=== PATIENT | male | born 1945 | race Caucasian/White ===

== ENCOUNTER 2016-11-14 07:05 | Outpatient (CLI) | payer MEDICARE ==
[2016-11-14 11:25] LABS: EOSINOPHILS # (AUTO) 0.2 10^3/uL (0.0-0.7); HGB - HEMOGLOBIN 14.7 g/dL (14.0-18.0); LYMPHOCYTES # (AUTO) 1.2 10^3/uL (1.5-3.5); MEAN PLATELET VOLUME 8.8 fL (7.4-11.4); RED CELL DISTRIBUTION WIDTH 12.6 % (12.0-15.0)
[2016-11-14 11:27] LABS: BASOPHILS % (AUTO) 0.6 %; EOSINOPHILS % (AUTO) 3.5 %; HCT - HEMATOCRIT 42.6 % (42.0-52.0); LYMPHOCYTES % (AUTO) 24.1 %; MEAN CORPUSCULAR HEMOGLOBIN 34.9 pg (27.0-31.0); MEAN CORPUSCULAR HGB CONC 34.5 g/dL (32.0-36.0); MEAN CORPUSCULAR VOLUME 101.1 fL (80.0-94.0); MONOCYTES # (AUTO) 0.4 10^3/uL (0.0-1.0); MONOCYTES % (AUTO) 8.2 %; NEUTROPHILS # (AUTO) 3.3 10^3/uL (1.5-6.6); NEUTROPHILS % (AUTO) 63.6 %; RED BLOOD COUNT 4.22 10^6/uL (4.70-6.10); UNCORRECTED WHITE BLOOD COUNT 5.2 x10^3/uL; WHITE BLOOD COUNT 5.2 x10^3/uL (4.8-10.8)
[2016-11-14 12:02] LABS: ALBUMIN/GLOBULIN RATIO 1.5 (1.0-2.2); CALCIUM 9.1 mg/dL (8.5-10.3); CREATININE 0.8 mg/dL (0.6-1.2); POTASSIUM 3.9 mmol/L (3.5-5.0); TOTAL PROTEIN 6.7 g/dL (6.7-8.2)
[2016-11-14 12:16] LABS: FREE T3 2.96 pg/mL (2.5-3.9)
[2016-11-14 12:35] LABS: THYROID STIMULATING HORMONE 0.46 uIU/mL (0.34-5.60)
== END 2016-11-14 07:06 | disposition home or self-care (01) ==
LOC: LAB.F 07:05
PROVIDERS: ATTEND Internal Medicine
DX: I10 Essential (primary) hypertension (principal); E29.1 Testicular hypofunction; R68.82 Decreased libido; E03.9 Hypothyroidism, unspecified
CPT/HCPCS: 36415; 80053; 82306; 84403; 84439; 84443; 84481; 85025; G0103; 84153

== ENCOUNTER 2017-12-23 09:05 | Outpatient (CLI) | payer MEDICARE ==
[2017-12-23 17:55] LABS: BASOPHILS # (AUTO) 0.1 10^3/uL (0.0-0.1); BASOPHILS % (AUTO) 0.9 %; EOSINOPHILS # (AUTO) 0.1 10^3/uL (0.0-0.7); EOSINOPHILS % (AUTO) 2.3 %; HGB - HEMOGLOBIN 14.9 g/dL (14.0-18.0); LYMPHOCYTES # (AUTO) 1.4 10^3/uL (1.5-3.5); MEAN CORPUSCULAR HEMOGLOBIN 34.8 pg (27.0-31.0); MEAN CORPUSCULAR HGB CONC 33.5 g/dL (32.0-36.0); MEAN CORPUSCULAR VOLUME 103.8 fL (80.0-94.0); MEAN PLATELET VOLUME 8.4 fL (7.4-11.4); MONOCYTES # (AUTO) 0.5 10^3/uL (0.0-1.0); MONOCYTES % (AUTO) 8.6 %; NEUTROPHILS # (AUTO) 4.1 10^3/uL (1.5-6.6); NEUTROPHILS % (AUTO) 66.2 %; PLT - PLATELET COUNT 183 10^3/uL (130-450); RED BLOOD COUNT 4.28 10^6/uL (4.70-6.10); RED CELL DISTRIBUTION WIDTH 13.1 % (12.0-15.0); WHITE BLOOD COUNT 6.3 x10^3/uL (4.8-10.8)
[2017-12-23 18:43] LABS: ALBUMIN/GLOBULIN RATIO 1.4 (1.0-2.2); ALKALINE PHOSPHATASE 67 IU/L (42-121); ALT ALANINE AMINOTRANSFERASE 24 IU/L (10-60); AST ASPARTATE AMINOTRANSFERASE 24 IU/L (10-42); BILIRUBIN,TOTAL 1.7 mg/dL (0.2-1.0); BUN - BLOOD UREA NITROGEN 14 mg/dL (6-20); CALCIUM 8.6 mg/dL (8.5-10.3); CARBON DIOXIDE - CO2 24 mmol/L (21-32); CHLORIDE 104 mmol/L (101-111); CHOL/HDL RATIO 2.8 (<5.0); CHOLESTEROL 182 mg/dL; CREATININE 0.8 mg/dL (0.6-1.2); GFR - MDRD 95 (>89); GLUCOSE 75 mg/dL (70-100); HDL CHOLESTEROL 66 mg/dL; LDL CHOLESTEROL,CALCULATED 92 mg/dL; LDL/HDL RATIO 1.4 (<3.6); SODIUM 135 mmol/L (135-145); TOTAL PROTEIN 6.9 g/dL (6.7-8.2); VLDL CHOLESTEROL 24 mg/dL
[2017-12-24 15:15] LABS: HEPATITIS C ANTIBODY NON-REACTIVE (NON-REACTIVE)
== END 2017-12-23 09:06 | disposition home or self-care (01) ==
LOC: LAB.F 09:05
PROVIDERS: ATTEND Physician Assistant Medical
DX: I10 Essential (primary) hypertension (principal); E78.5 Hyperlipidemia, unspecified; E03.9 Hypothyroidism, unspecified; E29.1 Testicular hypofunction; R74.8 Abnormal levels of other serum enzymes; Z12.5 Encounter for screening for malignant neoplasm of prostate; Z11.59 Encounter for screening for other viral diseases
CPT/HCPCS: 36415; 80053; 80061; 81599; 84402; 84403; 84443; 85025; 86803; G0103; 83721; 84153

== ENCOUNTER 2018-01-13 08:40 | Outpatient (CLI) | payer MEDICARE ==
[2018-01-13 10:21] LABS: ALBUMIN/GLOBULIN RATIO 1.4 (1.0-2.2); BILIRUBIN,TOTAL 1.2 mg/dL (0.2-1.0); CALCIUM 8.8 mg/dL (8.5-10.3); CREATININE 0.8 mg/dL (0.6-1.2); TOTAL PROTEIN 6.9 g/dL (6.7-8.2)
--- NOTE | 2018-01-13 11:36 | Ultrasound Report ---
Procedure Date: 01/13/2018 Accession Number: [id number] / [id number] Procedure: US - Aorta Screening CPT Code: FULL RESULT: EXAM: AORTIC DOPPLER ULTRASOUND EXAM DATE: 01/13/2018 09:33 AM. CLINICAL HISTORY: Screening for other unsp cardiovascular. COMPARISON: None. TECHNIQUE: Real-time sonographic imaging of retroperitoneal vascular structures, including color-flow, Doppler flow and spectral analysis was performed by the product sales engineer. Multiple sales representative meats static images were saved for review. FINDINGS: Aorta: The abdominal aorta was adequately visualized. No evidence for abdominal aortic aneurysm. Aorta: Proximal: Sagittal AP: 2.9 cm. Mid: Transverse: 2.2 x 2.4 cm. Distal: Transverse: 1.9 x 2.1 cm. Caliber WNL: Yes. Plaque visualized: Yes. Iliacs: Right Iliac: Transverse: 1.6 x 1.9 cm. Left Iliac: Transverse: 1.7 x 1.8 cm. Iliac Vessels: The visualized proximal common iliac arteries are normal in caliber. Other: Measurements are compatible with ectasia of the common iliac arteries and ectasia of the upper abdominal aorta without meeting criteria for aneurysm formation. IMPRESSION: Ectatic common iliac arteries and upper abdominal aorta. No abdominal aortic aneurysm. RADIA
--- NOTE | 2018-01-13 13:10 | DEXA Report ---
Procedure Date: 01/13/2018 Accession Number: [id number] / [id number] Procedure: DEX - Dexa Spine and/or Hip CPT Code: FULL RESULT: EXAM: Dexa Spine and/or Hip DATE: 01/13/2018 9:05 AM CLINICAL HISTORY: ENCOUNTER FOR SCREENING FOR OSTEOPOROSIS TECHNIQUE: Dual energy x-ray absorptiometry (DXA) was performed on a [employer] System. Regions measured are the AP Spine, femoral neck, and if needed forearm. COMPARISON: None. In accordance with the International Society for Clinical Densitometry (ISCD) guidelines, data from previous exams may be reanalyzed using current recommendations and techniques. This is done to allow a more accurate basis for comparison with the current study. FINDINGS: The data for the lumbar spine is as follows: BMD (g/cm/cm) T-SCORE Z-SCORE REGION L1 1.157 0.0 0.1 L2 1.465 1.9 2.0 L3 1.635 3.3 3.4 L4 1.597 3.0 3.1 TOTAL 1.485 2.2 2.3 NOTE: All evaluable vertebrae are used for classification The data for the hip is as follows: BMD (g/cm/cm) T-SCORE Z-SCORE REGION Neck 0.983 -0.7 0.3 TOTAL 1.145 0.3 0.8 IMPRESSION: THE WHO CLASSIFICATION BASED ON THE INTERNATIONAL REFERENCE STANDARD IS NORMAL. THE FRACTURE RISK IS NOT INCREASED. RECOMMENDATION: Patients with diagnosis of osteoporosis or osteopenia should have regular bone mineral density assessment. For those eligible for Medicare, routine testing is allowed once every 2 years. Testing frequency can be increased for patients who have rapidly progressing disease or for those who are receiving medical therapy to restore bone mass. COMMENT: World Health Organization (WHO) definitions for osteoporosis and osteopenia: NORMAL BMD: T-score at -1.0 or higher, fracture risk is low OSTEOPENIA BMD: T-score between -1.0 and -2.5, fracture risk is increased. OSTEOPOROSIS BMD: T-score at -2.5 or lower, fracture risk is high. National Osteoporosis Foundation recommends: 1. Obtain adequate dietary calcium (at least 1200 mg per day) and vitamin D (400-800 international units per day). 2. Participate, as appropriate, in regular weightbearing and muscle-strengthening exercise. 3. Avoid tobacco use and reduce alcohol and caffeine intake. 4. For more detailed information see the website at www.NOF.org.
[2018-01-14 12:22] LABS: HEPATITIS C ANTIBODY NON-REACTIVE (NON-REACTIVE)
== END 2018-01-13 08:41 | disposition home or self-care (01) ==
LOC: DI 08:40
PROVIDERS: ATTEND Physician Assistant Medical
DX: Z13.6 Encounter for screening for cardiovascular disorders (principal); Z13.820 Encounter for screening for osteoporosis; Z11.59 Encounter for screening for other viral diseases; I77.811 Abdominal aortic ectasia; E29.1 Testicular hypofunction; R74.8 Abnormal levels of other serum enzymes; R89.9 Unspecified abnormal finding in specimens from other organs, systems and tissues
CPT/HCPCS: 36415; 76706; 77080; 80053; 81599; 86803

== ENCOUNTER 2018-11-26 09:10 | Outpatient (CLI) | payer MEDICARE ==
[2018-11-26 17:52] LABS: BASOPHILS % (AUTO) 0.5 %; EOSINOPHILS # (AUTO) 0.1 10^3/uL (0.0-0.7); EOSINOPHILS % (AUTO) 2.2 %; HGB - HEMOGLOBIN 14.9 g/dL (14.0-18.0); LYMPHOCYTES # (AUTO) 1.3 10^3/uL (1.5-3.5); LYMPHOCYTES % (AUTO) 20.9 %; MEAN CORPUSCULAR HEMOGLOBIN 34.1 pg (27.0-31.0); MEAN CORPUSCULAR HGB CONC 32.3 g/dL (32.0-36.0); MEAN CORPUSCULAR VOLUME 105.5 fL (80.0-94.0); MEAN PLATELET VOLUME 10.3 fL (7.4-11.4); MONOCYTES # (AUTO) 0.5 10^3/uL (0.0-1.0); MONOCYTES % (AUTO) 7.3 %; NEUTROPHILS # (AUTO) 4.4 10^3/uL (1.5-6.6); NEUTROPHILS % (AUTO) 68.9 %; PLT - PLATELET COUNT 188 10^3/uL (130-450); RED BLOOD COUNT 4.37 10^6/uL (4.70-6.10); RED CELL DISTRIBUTION WIDTH 13.2 % (12.0-15.0); WHITE BLOOD COUNT 6.4 x10^3/uL (4.8-10.8)
[2018-11-26 18:16] LABS: PSA SCREEN (Z12.5) 1.52 ng/mL (0.000-2.000)
[2018-11-26 18:17] LABS: ALBUMIN 4.3 g/dL (3.2-5.5); ALBUMIN/GLOBULIN RATIO 1.4 (1.0-2.2); ALKALINE PHOSPHATASE 64 IU/L (42-121); ALT ALANINE AMINOTRANSFERASE 43 IU/L (10-60); AST ASPARTATE AMINOTRANSFERASE 37 IU/L (10-42); BILIRUBIN,TOTAL 1.2 mg/dL (0.2-1.0); BUN - BLOOD UREA NITROGEN 13 mg/dL (6-20); CALCIUM 9.1 mg/dL (8.5-10.3); CARBON DIOXIDE - CO2 25 mmol/L (21-32); CHLORIDE 104 mmol/L (101-111); CHOL/HDL RATIO 2.3 (<5.0); CHOLESTEROL 185 mg/dL; CREATININE 0.8 mg/dL (0.6-1.2); GFR - MDRD 95 (>89); GLUCOSE 97 mg/dL (70-100); HDL CHOLESTEROL 82 mg/dL; LDL CHOLESTEROL,CALCULATED 91 mg/dL; LDL/HDL RATIO 1.1 (<3.6); SODIUM 139 mmol/L (135-145); TOTAL PROTEIN 7.3 g/dL (6.7-8.2); VLDL CHOLESTEROL 12 mg/dL
[2018-11-26 18:18] LABS: T4 (THYROXINE) 7.4 ug/dL (6.09-12.23)
[2018-11-26 18:21] LABS: FREE T3 2.97 pg/mL (2.5-3.9); THYROID STIMULATING HORMONE 0.34 uIU/mL (0.34-5.60)
== END 2018-11-26 09:11 | disposition home or self-care (01) ==
LOC: LAB.F 09:10
PROVIDERS: ATTEND Physician Assistant Medical
DX: I10 Essential (primary) hypertension (principal); E78.5 Hyperlipidemia, unspecified; E55.9 Vitamin D deficiency, unspecified; E53.8 Deficiency of other specified B group vitamins; Z12.5 Encounter for screening for malignant neoplasm of prostate; E03.9 Hypothyroidism, unspecified
CPT/HCPCS: 36415; 80061; 82306; 82607; 84436; 84481; G0103; 80053; 83721; 84153; 84439; 84443; 85025

== ENCOUNTER 2018-12-15 06:07 | Day surgery (SDC) | payer MEDICARE ==
[2018-12-15] MEDS ORDERED: LACTATED RINGERS 1,000 ML IV ONE ×2 (06:40→10:00)
--- NOTE | 2018-12-15 07:06 | ANESTHESIA ---
Pre-Anesthesia VS, & Labs - Diagnosis hx colon polyps/r scrotal abcess - Procedure colonsocopy, I&D R scrotal abcess Vital Signs: Temp Pulse Resp BP Pulse Ox 36.8 C 48 L 15 128/82 H 96 12/15/18 06:23 12/15/18 06:23 12/15/18 06:23 12/15/18 06:23 12/15/18 06:23 Height 6 ft Weight (kg) 90 kg Home Medications and Allergies Home Medications: Ambulatory Orders Atorvastatin [Lipitor] 20 mg PO DAILY 12/12/18 Cholecalciferol (Vitamin D3) [Vitamin D3] 5,000 unit PO DAILY 12/12/18 Cyanocobalamin (Vitamin B-12) [Vitamin B-12] 1,000 mcg PO DAILY 12/12/18 Felodipine [Felodipine ER] 5 mg PO DAILY 12/12/18 Krill/Om-3/Dha/Epa/Phospho/Ast [[place]-3 Krill Oil 300 mg Sfgl] 3 cap PO DAILY 12/12/18 Levothyroxine Sodium [Synthroid] 150 mcg PO DAILY 12/12/18 Losartan Potassium [Cozaar] 100 mg PO DAILY 12/12/18 RX: Metoprolol Tartrate 50 mg PO DAILY 12/12/18 Sulfamethox/Trimeth 800/160 [Bactrim Ds 800/160] 1 each PO BID 12/12/18 Atorvastatin [Lipitor] 20 mg PO DAILY 12/12/18 Cholecalciferol (Vitamin D3) [Vitamin D3] 5,000 unit PO DAILY 12/12/18 Cyanocobalamin (Vitamin B-12) [Vitamin B-12] 1,000 mcg PO DAILY 12/12/18 Felodipine [Felodipine ER] 5 mg PO DAILY 12/12/18 Krill/Om-3/Dha/Epa/Phospho/Ast [[place]-3 Krill Oil 300 mg Sfgl] 3 cap PO DAILY 12/12/18 Levothyroxine Sodium [Synthroid] 150 mcg PO DAILY 12/12/18 Losartan Potassium [Cozaar] 100 mg PO DAILY 12/12/18 Metoprolol Tartrate 50 mg PO DAILY 12/12/18 Sulfamethox/Trimeth 800/160 [Bactrim Ds 800/160] 1 each PO BID 12/12/18 Allergies/Adverse Reactions: Allergies Allergy/AdvReac Type Severity Reaction Status Date / Time No Known Drug Allergies Allergy Verified 12/12/18 14:25 Anes History & Medical History - Medical History Cardiovascular: reports: Hypertension, High cholesterol Pulmonary: reports: None Gastrointestinal: reports: Other Urinary: reports: None Musculoskeletal: reports: Osteoarthritis Endocrine/Autoimmune: reports: HyPOthyroidism Skin: reports: None - Surgical History General: Colonoscopy Plan Anesthesia Type: MAC Consent for Procedure(s) Verified and Reviewed: Yes Code Status: Attempt Resuscitation ASA classification: 2-Mild systemic disease Is this case an emergency?: No
--- NOTE | 2018-12-15 07:07 | ANESTHESIA ---
Pre-Anesthesia VS, & Labs - Diagnosis history of colon polyps, right scrotal abscess - Procedure colonoscopy and I&D of right scrotal abscess Vital Signs: Temp Pulse Resp BP Pulse Ox 36.8 C 48 L 15 128/82 H 96 12/15/18 06:23 12/15/18 06:23 12/15/18 06:23 12/15/18 06:23 12/15/18 06:23 Height 6 ft Weight (kg) 90 kg - NPO >8 hours Home Medications and Allergies Home Medications: Ambulatory Orders Atorvastatin [Lipitor] 20 mg PO DAILY 12/12/18 Cholecalciferol (Vitamin D3) [Vitamin D3] 5,000 unit PO DAILY 12/12/18 Cyanocobalamin (Vitamin B-12) [Vitamin B-12] 1,000 mcg PO DAILY 12/12/18 Felodipine [Felodipine ER] 5 mg PO DAILY 12/12/18 Krill/Om-3/Dha/Epa/Phospho/Ast [[place]-3 Krill Oil 300 mg Sfgl] 3 cap PO DAILY 12/12/18 Levothyroxine Sodium [Synthroid] 150 mcg PO DAILY 12/12/18 Losartan Potassium [Cozaar] 100 mg PO DAILY 12/12/18 Metoprolol Tartrate 50 mg PO DAILY 12/12/18 Sulfamethox/Trimeth 800/160 [Bactrim Ds 800/160] 1 each PO BID 12/12/18 Atorvastatin [Lipitor] 20 mg PO DAILY 12/12/18 Cholecalciferol (Vitamin D3) [Vitamin D3] 5,000 unit PO DAILY 12/12/18 Cyanocobalamin (Vitamin B-12) [Vitamin B-12] 1,000 mcg PO DAILY 12/12/18 Felodipine [Felodipine ER] 5 mg PO DAILY 12/12/18 Krill/Om-3/Dha/Epa/Phospho/Ast [[place]-3 Krill Oil 300 mg Sfgl] 3 cap PO DAILY 12/12/18 Levothyroxine Sodium [Synthroid] 150 mcg PO DAILY 12/12/18 Losartan Potassium [Cozaar] 100 mg PO DAILY 12/12/18 Metoprolol Tartrate 50 mg PO DAILY 12/12/18 Sulfamethox/Trimeth 800/160 [Bactrim Ds 800/160] 1 each PO BID 12/12/18 Allergies/Adverse Reactions: Allergies Allergy/AdvReac Type Severity Reaction Status Date / Time No Known Drug Allergies Allergy Verified 12/12/18 14:25 Anes History & Medical History - Anesthetic History Anesthesia Complications: reports: No previous complications Family history of Anesthesia Complications: Denies Family history of Malignant Hyperthermia: Denies - Medical History Cardiovascular: reports: Hypertension, High cholesterol Pulmonary: reports: None Gastrointestinal: reports: None Urinary: reports: None Neuro: reports: None Musculoskeletal: reports: Osteoarthritis Endocrine/Autoimmune: reports: HyPOthyroidism Blood Disorders: reports: None Skin: reports: None Smoking Status: Current every day smoker (20 year pack history. smokes cigars currently) Psychosocial: reports: Alcohol (drinks wine 1-2 glasses daily.) - Surgical History General: Colonoscopy, Other (hemorrhoidectomy) Orthopedic: Other (orif right tib/fib) Exam General: Alert, Oriented x3, Cooperative, No acute distress Dental: WNL Mouth Openin Fingerbreadth Neck Mobility: Normal Mallampati classification: II Thyromental Distance: 4-6 cm Respiratory: Lungs clear, Normal breath sounds, No respiratory distress, No accessory muscle use Cardiovascular: Regular rate, Normal S1, Normal S2, No murmurs Mental/Cognitive Status: Alert/Oriented X3, Normal for patient Plan Anesthesia Type: MAC Consent for Procedure(s) Verified and Reviewed: Yes Code Status: Attempt Resuscitation ASA classification: 2-Mild systemic disease Is this case an emergency?: No
[2018-12-15] MEDS ORDERED: cefOXitin 2 GM VIAL IV ONE (07:52)
[2018-12-15] MEDS ORDERED: fentaNYL 100 MCG/2 ML VIAL IVP ONE (10:00)
[2018-12-15] MEDS ORDERED: MIDAZOLAM 2 MG/2 ML VIAL IVP ONE (10:00)
[2018-12-15] MEDS ORDERED: PROPOFOL 200 MG/20 ML VIAL IVP ONE (10:00)
[2018-12-15] MEDS ORDERED: LIDOCAINE MPF 1%-EPI 1:200000 30 ML VIAL ONE (10:03)
--- NOTE | 2018-12-15 10:08 | OPERATIVE REPORT ---
Operative Report - General Procedure Date: 12/15/18 Planned Procedure: Colonoscopy and incision and drainage of right scrotal abscess Pre-Op Diagnosis: 1.Personal history of colon polyps,2.Recurrent right scrotal abscess Procedure Performed: 1.Colonoscopy with polypectomy x23 2. Incision and drainage of 5 x 2 cm scrotal abscess Post Op Diagnosis: 1.Multiple colon polyps, 2.Recurrent scrotal abscess - Procedure Note Primary Surgeon: Stephanie Anesthesia Provider: EDWARDO Montesinos Anesthesia Technique: Local, MAC Pathology: 1. Mid transverse colon polyps x3-2 Pedunculated and removed with snare and cautery and retained for pathology. Both a proximally 1 cm in size. One removed with cold forceps and was approximately 3 mm in size 2. Cecal polyps x3-1 Pedunculated and approximately 6 to 7 mm in size in room move with snare and cautery, to approximately 3 to 5 mm in size and removed with cold forceps 3. Mid right colon polyps x3-1 approximately 1 Centimeter in sizeAnd removed with snare and cautery. 2 approximately 5 mm and removed with cold forceps 4.Hepatic flexure polyps. 3 in total. All removed with snare and cautery. The largest was 1 cm and the smallest approximately 5 mm. The base of the largest polyp was tattooed here as it was flatter and more fungating in appearance. 5. Splenic flexure polyps x3. One approximately 6 mm and removed with snare and cautery and the other 2 3 to 5 mm and removed with cold forceps 6.Mid descending colon polyp approximately 7 mm removed with snare and cautery 7. 1 cm Semi-pedunculated polyp at 30 cm removed with snare and cautery.The base of this polyp was also quite flat and so it was tattooed as well 8. Rectal polyps x6. The largest was 1 cm was removed with snare and cautery. To wear approximately 5 mm and removed with snare and cautery. The remaining 3 were sessile and removed with cold forceps. 9. 5 x 2 cm retro-scrotal abscess. This area was cultured and sent for aerobic and anaerobic organisms. Estimated Blood Loss (mL): 5 Findings: 1. See list of pathology specimens above. The patient had 23 identified polyps with a mixture of large and small and pedunculated and sessile specimens. 2. 5 x 2 cm retro-scrotal abscess on the right that appears to have started from a large sebaceous cyst - Other Other Information/Narrative: After obtaining informed consent the patient is brought to the operating room placed in the left lateral decubitus position on the examination table. Following successful induction of MAC sedation, a timeout was held per SCOAP protocol. The colonoscope was lubricated and passed in the patient's anus. The entire colon was navigated to the level of the cecum. Careful visualization was then employed being sure to go to and fro performed beyond all mucosal folds and prominences and get an excellent examination. We identified 23 polyps in all. They were a mixture of pedunculated with very long stalks to sessile with no stalk at all. All polyps were removed to completion and specimens were r etained.In the rectal vault, the scope was retroflexed and the hemorrhoids examined. The patient does have grade 2 internal hemorrhoids but there is no evidence of recent hemorrhage.The scope was straightened and the air was aspirated. This portion of the procedure was concluded. We turned our attention to the scrotal abscess. The patient was returned to flat position very carefully. The scrotum and groin were prepped and draped in the standard surgical fashion. The area over the abscess was infiltrated with 1% Lidocaine containing epinephrine.A 2 cm incision was then created directly over the abscess and carried down through the skin and subcutaneous tissue.To a 5 x 2 cm cavity directly beneath the sebaceous cyst on the surface. The area was cultured and carefully washed with Betadine saline solution. It was packed with Quarter-inch Nu gauze soaked in Betadine.All sponge, needle, and instrument counts were correct at the conclusion of the case. A dry dressing was applied. The patient was allowed to awaken from sedation and taken back to the postanesthesia care unit in good condition.
[2018-12-15] MEDS ORDERED: HYDROcod/ACETAM 5/325 MG TABLET PO PRN (10:20)
[2018-12-15] MEDS ORDERED: HYDROmorphone 0.5 MG/0.5 ML SYRINGE IVP PRN (10:20)
[2018-12-15] MEDS ORDERED: ONDANSETRON 4 MG/2 ML VIAL IVP PRN (10:20)
[2018-12-15 10:50] VITALS: BP 132/71
== END 2018-12-15 06:08 | disposition home or self-care (01) ==
LOC: SDS 06:07
PROVIDERS: ATTEND Surgery
PROC: 0DBP8ZZ Excision of Rectum, Via Natural or Artificial Opening Endoscopic (ICD-10-PCS; 2018-12-15)
PROC: 0DBF8ZZ Excision of Right Large Intestine, Via Natural or Artificial Opening Endoscopic (ICD-10-PCS; 2018-12-15)
PROC: 0DBM8ZZ Excision of Descending Colon, Via Natural or Artificial Opening Endoscopic (ICD-10-PCS; 2018-12-15)
PROC: 0DBH8ZZ Excision of Cecum, Via Natural or Artificial Opening Endoscopic (ICD-10-PCS; 2018-12-15)
PROC: 0DBL8ZZ Excision of Transverse Colon, Via Natural or Artificial Opening Endoscopic (ICD-10-PCS; 2018-12-15)
PROC: 0DBP8ZZ Excision of Rectum, Via Natural or Artificial Opening Endoscopic (ICD-10-PCS; 2018-12-15)
PROC: 0DBF8ZZ Excision of Right Large Intestine, Via Natural or Artificial Opening Endoscopic (ICD-10-PCS; 2018-12-15)
PROC: 0DBG8ZZ Excision of Left Large Intestine, Via Natural or Artificial Opening Endoscopic (ICD-10-PCS; 2018-12-15)
PROC: 3E0H8GC Introduction of Other Therapeutic Substance into Lower GI, Via Natural or Artificial Opening Endoscopic (ICD-10-PCS; 2018-12-15)
PROC: 0V95XZZ Drainage of Scrotum, External Approach (ICD-10-PCS; 2018-12-15)
PROC: 0DBH8ZZ Excision of Cecum, Via Natural or Artificial Opening Endoscopic (ICD-10-PCS; principal; 2018-12-15 07:30)
PROC: 0DBL8ZZ Excision of Transverse Colon, Via Natural or Artificial Opening Endoscopic (ICD-10-PCS; 2018-12-15 07:30)
DX: Z12.11 Encounter for screening for malignant neoplasm of colon (principal); D12.3 Benign neoplasm of transverse colon; D12.0 Benign neoplasm of cecum; D12.4 Benign neoplasm of descending colon; D12.2 Benign neoplasm of ascending colon; K62.1 Rectal polyp; K64.1 Second degree hemorrhoids; N49.2 Inflammatory disorders of scrotum; L72.3 Sebaceous cyst; G47.30 Sleep apnea, unspecified; F17.210 Nicotine dependence, cigarettes, uncomplicated; I10 Essential (primary) hypertension; Z79.899 Other long term (current) drug therapy
CPT/HCPCS: 45380; 45381; 45385; 55100; 87070; 87205; A9270; J7120

== ENCOUNTER 2019-12-03 07:15 | Outpatient (CLI) | payer MEDICARE ==
[2019-12-03 15:59] LABS: BASOPHILS # (AUTO) 0.1 10^3/uL (0.0-0.1); BASOPHILS % (AUTO) 0.8 %; EOSINOPHILS # (AUTO) 0.2 10^3/uL (0.0-0.7); EOSINOPHILS % (AUTO) 3.6 %; HGB - HEMOGLOBIN 15.3 g/dL (14.0-18.0); LYMPHOCYTES # (AUTO) 1.7 10^3/uL (1.5-3.5); LYMPHOCYTES % (AUTO) 25.4 %; MEAN CORPUSCULAR HGB CONC 31.9 g/dL (32.0-36.0); MEAN CORPUSCULAR VOLUME 103.5 fL (80.0-94.0); MEAN PLATELET VOLUME 10.6 fL (7.4-11.4); MONOCYTES # (AUTO) 0.6 10^3/uL (0.0-1.0); MONOCYTES % (AUTO) 8.6 %; NEUTROPHILS # (AUTO) 4.1 10^3/uL (1.5-6.6); NEUTROPHILS % (AUTO) 61.3 %; PLT - PLATELET COUNT 200 10^3/uL (130-450); RED BLOOD COUNT 4.63 10^6/uL (4.70-6.10); RED CELL DISTRIBUTION WIDTH 12.8 % (12.0-15.0); WHITE BLOOD COUNT 6.6 x10^3/uL (4.8-10.8)
[2019-12-03 16:28] LABS: ALBUMIN 4.4 g/dL (3.2-5.5); ALBUMIN/GLOBULIN RATIO 1.7 (1.0-2.2); ALKALINE PHOSPHATASE 71 IU/L (42-121); ALT ALANINE AMINOTRANSFERASE 38 IU/L (10-60); AST ASPARTATE AMINOTRANSFERASE 30 IU/L (10-42); BILIRUBIN,TOTAL 1.1 mg/dL (0.2-1.0); BUN - BLOOD UREA NITROGEN 17 mg/dL (6-20); CALCIUM 8.8 mg/dL (8.5-10.3); CARBON DIOXIDE - CO2 28 mmol/L (21-32); CHLORIDE 103 mmol/L (101-111); CHOL/HDL RATIO 2.9 (<5.0); CHOLESTEROL 200 mg/dL; CREATININE 0.9 mg/dL (0.6-1.2); GLUCOSE 96 mg/dL (70-100); HDL CHOLESTEROL 69 mg/dL; LDL CHOLESTEROL,CALCULATED 116 mg/dL; LDL/HDL RATIO 1.7 (<3.6); SODIUM 138 mmol/L (135-145); VLDL CHOLESTEROL 15 mg/dL
== END 2019-12-03 07:16 | disposition home or self-care (01) ==
LOC: LAB.S 07:15
PROVIDERS: ATTEND Registered Nurse
DX: E55.9 Vitamin D deficiency, unspecified (principal); E53.8 Deficiency of other specified B group vitamins; F17.210 Nicotine dependence, cigarettes, uncomplicated; G47.33 Obstructive sleep apnea (adult) (pediatric); I10 Essential (primary) hypertension; E78.5 Hyperlipidemia, unspecified; E03.9 Hypothyroidism, unspecified; Z12.5 Encounter for screening for malignant neoplasm of prostate
CPT/HCPCS: 36415; 80053; 80061; 83721; 84443; 85025

== ENCOUNTER 2020-01-28 07:43 | Day surgery (SDC) | payer MEDICARE ==
[2020-01-28] MEDS ORDERED: LACTATED RINGERS 1,000 ML IV ONE ×2 (08:05→09:53)
[2020-01-28] MEDS ORDERED: fentaNYL 250 MCG/5 ML VIAL IVP ONE (09:18)
[2020-01-28] MEDS ORDERED: MIDAZOLAM 2 MG/2 ML VIAL IVP ONE (09:18)
[2020-01-28 10:24] VITALS: BP 128/72
== END 2020-01-28 07:44 | disposition home or self-care (01) ==
LOC: SDS 07:43
PROVIDERS: ATTEND Surgery
PROC: 0DBK8ZZ Excision of Ascending Colon, Via Natural or Artificial Opening Endoscopic (ICD-10-PCS; principal; 2020-01-28 09:00)
DX: D12.2 Benign neoplasm of ascending colon (principal); D12.3 Benign neoplasm of transverse colon; K63.5 Polyp of colon; K57.30 Diverticulosis of large intestine without perforation or abscess without bleeding; G47.33 Obstructive sleep apnea (adult) (pediatric); I10 Essential (primary) hypertension; E78.00 Pure hypercholesterolemia, unspecified; E03.9 Hypothyroidism, unspecified
CPT/HCPCS: 45380; J3010; J7120

== ENCOUNTER 2020-02-22 12:40 | Outpatient (CLI) | payer MEDICARE | END 2020-02-22 12:41 | disposition home or self-care (01) | LOC: LAB.S 12:40 | PROVIDERS: ATTEND Registered Nurse | DX: Z12.5 Encounter for screening for malignant neoplasm of prostate (principal); R53.83 Other fatigue | CPT/HCPCS: 36415; 82306; 82607; G0103; 84153 ==

== ENCOUNTER 2020-12-13 07:19 | Outpatient (CLI) | payer MEDICARE ==
[2020-12-13 17:09] LABS: BASOPHILS # (AUTO) 0.1 10^3/uL (0.0-0.1); BASOPHILS % (AUTO) 0.9 %; EOSINOPHILS # (AUTO) 0.2 10^3/uL (0.0-0.7); EOSINOPHILS % (AUTO) 3.6 %; HCT - HEMATOCRIT 45.8 % (42.0-52.0); HGB - HEMOGLOBIN 14.9 g/dL (14.0-18.0); LYMPHOCYTES # (AUTO) 1.2 10^3/uL (1.5-3.5); LYMPHOCYTES % (AUTO) 22.2 %; MEAN CORPUSCULAR HEMOGLOBIN 34.1 pg (27.0-31.0); MEAN CORPUSCULAR HGB CONC 32.5 g/dL (32.0-36.0); MEAN CORPUSCULAR VOLUME 104.8 fL (80.0-94.0); MEAN PLATELET VOLUME 10.4 fL (7.4-11.4); MONOCYTES # (AUTO) 0.5 10^3/uL (0.0-1.0); MONOCYTES % (AUTO) 8.5 %; NEUTROPHILS # (AUTO) 3.6 10^3/uL (1.5-6.6); NEUTROPHILS % (AUTO) 64.4 %; PLT - PLATELET COUNT 221 10^3/uL (130-450); RED BLOOD COUNT 4.37 10^6/uL (4.70-6.10); RED CELL DISTRIBUTION WIDTH 12.7 % (12.0-15.0); WHITE BLOOD COUNT 5.5 x10^3/uL (4.8-10.8)
[2020-12-13 17:34] LABS: ALBUMIN 4.4 g/dL (3.2-5.5); ALBUMIN/GLOBULIN RATIO 1.7 (1.0-2.2); ALKALINE PHOSPHATASE 63 IU/L (42-121); ALT ALANINE AMINOTRANSFERASE 47 IU/L (10-60); AST ASPARTATE AMINOTRANSFERASE 45 IU/L (10-42); BILIRUBIN,TOTAL 1.1 mg/dL (0.2-1.0); BUN - BLOOD UREA NITROGEN 9 mg/dL (6-20); CALCIUM 9.2 mg/dL (8.5-10.3); CARBON DIOXIDE - CO2 28 mmol/L (21-32); CHLORIDE 100 mmol/L (101-111); CHOL/HDL RATIO 2.1 (<5.0); CHOLESTEROL 165 mg/dL; CREATININE 0.7 mg/dL (0.6-1.2); GFR - MDRD 110 (>89); GLUCOSE 113 mg/dL (70-100); HDL CHOLESTEROL 77 mg/dL; LDL CHOLESTEROL,CALCULATED 80 mg/dL; POTASSIUM 3.7 mmol/L (3.5-5.0); SODIUM 136 mmol/L (135-145); TRIGLYCERIDES 41 mg/dL; VLDL CHOLESTEROL 8 mg/dL
== END 2020-12-13 07:20 | disposition home or self-care (01) ==
LOC: LAB.S 07:19
PROVIDERS: ATTEND Registered Nurse
DX: Z00.00 Encounter for general adult medical examination without abnormal findings (principal); E29.1 Testicular hypofunction; G47.33 Obstructive sleep apnea (adult) (pediatric); I10 Essential (primary) hypertension; E78.5 Hyperlipidemia, unspecified; E03.9 Hypothyroidism, unspecified; R53.83 Other fatigue
CPT/HCPCS: 36415; 80053; 80061; 83721; 84153; 84443; 85025

== ENCOUNTER 2020-12-17 09:04 | Outpatient (CLI) | payer MEDICARE ==
[2020-12-17 16:18] LABS: T4 (THYROXINE) 8.54 ug/dL (6.09-12.23)
[2020-12-17 16:22] LABS: THYROID STIMULATING HORMONE 0.16 uIU/mL (0.34-5.60)
[2020-12-17 20:11] LABS: ESTIMATED AVERAGE GLUCOSE 105 mg/dL (70-100); HEMOGLOBIN A1c% 5.3 % (4.27-6.07)
== END 2020-12-17 09:05 | disposition home or self-care (01) ==
LOC: LAB.S 09:04
PROVIDERS: ATTEND Registered Nurse
DX: Z00.00 Encounter for general adult medical examination without abnormal findings (principal); E03.9 Hypothyroidism, unspecified
CPT/HCPCS: 36415; 83036; 84436; 84443; 84480

== ENCOUNTER 2020-12-31 14:17 | Emergency (ER) | payer MEDICARE ==
[2020-12-31] MEDS ORDERED: BUFFERED LIDOCAINE 10 ML SYRINGE SUBQ STA (17:39)
[2020-12-31] MEDS ORDERED: ROPIVACAINE 0.5% PF 20 ML AMPULE SUBQ STA (17:39)
[2020-12-31] MEDS ORDERED: TETANUS/DIPHTHERIA/PERTUSSIS 0.5 ML SYRINGE IM ONE (17:43)
--- NOTE | 2020-12-31 17:44 | ED Physician Documentation ---
PD HPI UPPER EXT INJURY - Stated complaint Stated Complaint: L HAND LAC - Chief complaint Chief Complaint: Laceration - History obtained from History obtained from: Patient (Right-handed gentleman who is borderline on his tetanus being up-to-date was using a pneumatic wood splitter today and took the and off of his left middle finger. Pain is moderate. No other injuries.) Review of Systems Ten Systems: 10 systems reviewed and negative Constitutional: reports: Reviewed and negative Eyes: reports: Reviewed and negative Ears: reports: Reviewed and negative Nose: reports: Reviewed and negative PD PAST MEDICAL HISTORY - Past Medical History Cardiovascular: Hypertension, High cholesterol Respiratory: None Neuro: None Endocrine/Autoimmune: HyPOthyroidism GI: Other : None HEENT: None Psych: None Musculoskeletal: Osteoarthritis Derm: None - Past Surgical History General: Colonoscopy Ortho: Other - Present Medications Home Medications: Ambulatory Orders Medication Instructions Recorded Confirmed Atorvastatin [Lipitor] 20 mg PO DAILY 12/12/18 12/31/20 Cholecalciferol (Vitamin D3) 5,000 unit PO DAILY 12/12/18 12/31/20 [Vitamin D3] Cyanocobalamin (Vitamin B-12) 1,000 mcg PO DAILY 12/12/18 12/31/20 [Vitamin B-12] Felodipine [Felodipine ER] 5 mg PO DAILY 12/12/18 12/31/20 Krill/Om-3/Dha/Epa/Phospho/Ast 3 cap PO DAILY 12/12/18 12/31/20 [[place]-3 Krill Oil 300 mg Sfgl] Levothyroxine Sodium [Synthroid] 150 mcg PO DAILY 12/12/18 12/31/20 Losartan Potassium [Cozaar] 100 mg PO DAILY 12/12/18 12/31/20 cephALEXin [Keflex] 500 mg PO Q6H #28 cap 12/31/20 - Allergies Allergies/Adverse Reactions: Allergies Allergy/AdvReac Type Severity Reaction Status Date / Time No Known Drug Allergies Allergy Verified 12/31/20 15:24 - Social History Smoking Status: Current every day smoker (20 year pack history. smokes cigars currently) PD ED PE NORMAL - Vitals Vital signs reviewed: Yes - General General: Alert and oriented X 3, No acute distress - HEENT HEENT: PERRL, EOMI - Neck Neck: Supple, no meningeal sign, No bony TTP - Cardiac Cardiac: RRR, No murmur - Respiratory Respiratory: No respiratory distress, Clear bilaterally - Abdomen Abdomen: Non tender - Extremities Extremities: Other (He has a traumatic amputation with significant tissue loss through the tuft of the left middle finger, the nailbed is completely avulsed as it is much of the fat of the tip.) - Neuro Neuro: Alert and oriented X 3, Normal speech Results - Vitals Vitals: Vital Signs - 24 hr 12/31/20 15:15 Temperature 36.8 C Heart Rate 68 Respiratory 16 Rate Blood Pressure 137/65 H O2 Saturation 97 Oxygen O2 Source Room air - Rads (name of study) X-ray of the left third finger demonstrates an open tuft fracture with amputation. Radiology: EMP read contemporaneously Procedures - General procedure General procedure: The left middle finger was anesthetized with a one-to-one mixture of buffered lidocaine and 0.5 ropivacaine with excellent anesthesia. A finger tourniquet was placed and the finger was prepped and draped. The exposed bone was rongeured back and then it was dressed with Xeroform and tube gauze. PD MEDICAL DECISION MAKING - ED course ED course: 75-year-old gentleman with fingertip amputation with open fracture. The wound was irrigated and the bone was rongeured back behind the soft tissues. Case was discussed by phone with our on-call orthopedist, Dr. Banks who felt that open treatment was appropriate and can follow-up with the patient. Departure - Departure Disposition: 01 Home, Self Care Clinical Impression: Fingertip amputation Qualifiers: Encounter type: initial encounter Qualified Code(s): S68.119A - Complete traumatic metacarpophalangeal amputation of unspecified finger, initial encounter Condition: Good Record reviewed to determine appropriate education?: Yes Instructions: ED Laceration Amputation Finger Tip Open Tx Follow-Up: Bryce Banks MD [Provider Admit Priv/Credential] - Prescriptions: cephALEXin [Keflex] 500 mg PO Q6H #28 cap Comments: You can wash the wound briefly with us regular soap and water once a day. After that it should be kept moist with a petroleum-based solution either the an tibiotic ointment I have been prescribing or the Xeroform of which I gave you a few of. On top of that a nonstick dressing which is available [id number] such as Telfa and then a not too tight wrap to keep it all in place. Follow-up with the orthopedic surgeon, call his office Saturday for an appointment. Return for new or worsening symptoms. Elevate as much as possible.
--- NOTE | 2020-12-31 17:55 | XRAY Report ---
PROCEDURE: Finger(s) LT INDICATIONS: L finger inj TECHNIQUE: AP hand, 2 views of the third finger(s) acquired. COMPARISON: None FINDINGS: Bones: Amputation injury can be seen involving the distal aspect of the distal phalanx of the third finger, with bone fragments missing and comminuted fragments remaining. There is no intra-articular i nvolvement. Focal degenerative change is seen involving the carpometacarpal joint, with milder degenerative dumont es seen elsewhere. Soft tissues: There is associated soft tissue injury. There is a radiopaque foreign body seen associa cisco with the thumb. IMPRESSION: Amputation injury of the distal tip of the third finger, with missing bone fragments and comminuted f ragments remaining. Reviewed by: Rj Schroeder MD on 12/31/2020 4:54 PM RA[facility]L Approved by: Rj Schroeder MD on 12/31/2020 4:54 PM RA[facility]L Station ID: [id number]
[2020-12-31] MEDS ORDERED: cephALEXin 250 MG CAPSULE PO STA (18:21)
[2020-12-31 18:37] VITALS: BP 135/68
== END 2020-12-31 18:37 | disposition home or self-care (01) ==
LOC: ED 14:17
DX: S68.623A Partial traumatic transphalangeal amputation of left middle finger, initial encounter (principal); W29.8XXA Contact with other powered hand tools and household machinery, initial encounter; Z23 Encounter for immunization; I10 Essential (primary) hypertension; F17.290 Nicotine dependence, other tobacco product, uncomplicated
CPT/HCPCS: 26236; 73140; 90471; 90715; 99283; A9270

== ENCOUNTER 2021-02-07 11:34 | Day surgery (SDC) | payer MEDICARE ==
[2021-02-07] MEDS ORDERED: MIDAZOLAM 2 MG/2 ML VIAL ONE (11:57)
[2021-02-07] MEDS ORDERED: PROPOFOL 200 MG/20 ML VIAL IVP ONE ×2 (11:58→13:44)
[2021-02-07] MEDS ORDERED: fentaNYL 100 MCG/2 ML VIAL ONE (11:58)
[2021-02-07] MEDS ORDERED: LIDOCAINE-MPF 2% 5 ML VIAL ONE (11:58)
--- NOTE | 2021-02-07 12:02 | ANESTHESIA ---
Pre-Anesthesia VS, & Labs - Diagnosis hx multiple colon polyps - Procedure colonoscopy Vital Signs: Temp Pulse Resp BP Pulse Ox 36.6 C 53 L 14 141/77 H 98 02/07/21 11:43 02/07/21 11:43 02/07/21 11:43 02/07/21 11:43 02/07/21 11:43 Height: 6 ft Weight (kg): 84 kg Body Mass Index: 25.1 BMI Classification: Overweight - NPO >8 hours - Lab Results Lab results reviewed: Yes Home Medications and Allergies Home Medications: Ambulatory Orders hydroCHLOROthiazide [Hydrodiuril] 12.5 mg PO DAILY 02/06/21 Atorvastatin [Lipitor] 20 mg PO DAILY 12/12/18 Cholecalciferol (Vitamin D3) [Vitamin D3] 5,000 unit PO DAILY 12/12/18 Cyanocobalamin (Vitamin B-12) [Vitamin B-12] 1,000 mcg PO DAILY 12/12/18 Felodipine [Felodipine ER] 5 mg PO DAILY 12/12/18 Krill/Om-3/Dha/Epa/Phospho/Ast [[place]-3 Krill Oil 300 mg Sfgl] 3 cap PO DAILY 12/12/18 Levothyroxine Sodium [Synthroid] 150 mcg PO DAILY 12/12/18 Losartan Potassium [Cozaar] 100 mg PO DAILY 12/12/18 hydroCHLOROthiazide [Hydrodiuril] 12.5 mg PO DAILY 02/06/21 Allergies/Adverse Reactions: Allergies Allergy/AdvReac Type Severity Reaction Status Date / Time No Known Drug Allergies Allergy Verified 12/31/20 15:24 Anes History & Medical History - Anesthetic History Anesthesia Complications: reports: No previous complications Family history of Anesthesia Complications: Denies Family history of Malignant Hyperthermia: Denies - Medical History Cardiovascular: reports: Hypertension, High cholesterol Pulmonary: reports: None Gastrointestinal: reports: Colon polyps Urinary: reports: None Neuro: reports: None Musculoskeletal: reports: Osteoarthritis Endocrine/Autoimmune: reports: HyPOthyroidism Blood Disorders: reports: None Skin: reports: None Smoking Status: Current every day smoker (20 year pack history. smokes cigars currently) - Surgical History General: reports: Colonoscopy Orthopedic: reports: Other Exam General: Alert, Oriented x3, Cooperative Dental: WNL Mouth Openin Fingerbreadth Neck Mobility: Normal Mallampati classification: II Thyromental Distance: 4-6 cm Respiratory: Lungs clear, Normal breath sounds, No respiratory distress Cardiovascular: Regular rate Neurological: Normal speech Mental/Cognitive Status: Alert/Oriented X3, Normal for patient Cognitive Status: Within normal limits Plan Anesthesia Type: Total IV Consent for Procedure(s) Verified and Reviewed: Yes Code Status: Attempt Resuscitation ASA classification: 2-Mild systemic disease Is this case an emergency?: No
[2021-02-07] MEDS ORDERED: LACTATED RINGERS 1,000 ML IV ONE (12:13)
[2021-02-07] MEDS ORDERED: GLYCOPYRROLATE 1 MG/5 ML VIAL ONE (12:53)
[2021-02-07] MEDS ORDERED: LACTATED RINGERS 100 ML IV ONE (13:53)
[2021-02-07 14:34] VITALS: BP 141/78
--- NOTE | 2021-02-07 15:09 | ANESTHESIA POST OP EVALUATION ---
Anesthesia Post Eval - Post Anesthesia Eval Vitals: Last Vital Signs Temp 36.6 C 02/07/21 14:34 Pulse 47 L 02/07/21 14:34 Resp 14 02/07/21 14:34 BP 141/78 H 02/07/21 14:34 Pulse Ox 99 02/07/21 14:34 CV Function Including HR & BP: Stable Pain Control: Satisfactory Nausea & Vomiting: Negative Mental Status: Baseline Respiratory Status: Airway Patent Hydration Status: Satisfactory Anesthesia Complications: None
== END 2021-02-07 11:35 | disposition home or self-care (01) ==
LOC: SDS 11:34
PROVIDERS: ATTEND Surgery
PROC: 0DBM8ZZ Excision of Descending Colon, Via Natural or Artificial Opening Endoscopic (ICD-10-PCS; 2021-02-07)
PROC: 0DBH8ZZ Excision of Cecum, Via Natural or Artificial Opening Endoscopic (ICD-10-PCS; 2021-02-07)
PROC: 0DBK8ZZ Excision of Ascending Colon, Via Natural or Artificial Opening Endoscopic (ICD-10-PCS; 2021-02-07)
PROC: 0DBN8ZZ Excision of Sigmoid Colon, Via Natural or Artificial Opening Endoscopic (ICD-10-PCS; 2021-02-07)
PROC: 0DBK8ZZ Excision of Ascending Colon, Via Natural or Artificial Opening Endoscopic (ICD-10-PCS; principal; 2021-02-07 12:45)
DX: D12.0 Benign neoplasm of cecum (principal); D12.2 Benign neoplasm of ascending colon; D12.4 Benign neoplasm of descending colon; D12.5 Benign neoplasm of sigmoid colon; K64.4 Residual hemorrhoidal skin tags; K64.8 Other hemorrhoids; G47.33 Obstructive sleep apnea (adult) (pediatric); F17.290 Nicotine dependence, other tobacco product, uncomplicated
CPT/HCPCS: 45380; 45385; J7120

== ENCOUNTER 2021-03-30 08:26 | Outpatient (CLI) | payer MEDICARE ==
--- NOTE | 2021-03-30 09:20 | DEXA Report ---
PROCEDURE: Dexa Spine and/or Hip INDICATIONS: OSTEOPOROSIS SCREENING TECHNIQUE: Dual energy x-ray absorptiometry (DXA) was performed on a [employer] System. Regions measur ed are the AP Spine, femoral neck, and if needed forearm. COMPARISON: 01/13/2018. FINDINGS: Lumbar Spine: Bone Mineral Density 1.360 g/cm/cm,T score 1.3. There is interval 2.7% increase in total lumbar spine bone mineral density. Left Hip: Bone Mineral Density 1.145 g/cm/cm,T score 0.3. This is unchanged from previous study. Left Femoral Neck: Bone Mineral Density 1.038 g/cm/cm, T score -0.2. (T score greater or equal to -1.0: NORMAL) (T score from -1.1 to -2.4: OSTEOPENIA) (T score less than or equal to -2.5 to: OSTEOPOROSIS) Impression: Normal bone mineral density. Patients with diagnosis of osteoporosis or osteopenia should have regular bone mineral density assess ment. For those eligible for Medicare, routine testing is allowed once every 2 years. Testing frequ ency can be increased for patients who have rapidly progressing disease or for those who are receivin g medical therapy to restore bone mass. Reviewed by: Salvatore Agarwal MD on 03/30/2021 9:18 AM PDT Approved by: Salvatore Agarwal MD on 03/30/2021 9:18 AM PDT Station ID: [id number]
== END 2021-03-30 08:27 | disposition home or self-care (01) ==
LOC: DI 08:26
PROVIDERS: ATTEND Registered Nurse
DX: Z13.820 Encounter for screening for osteoporosis (principal)

== ENCOUNTER 2021-06-29 07:46 | Outpatient (CLI) | payer MEDICARE ==
--- NOTE | 2021-06-30 10:14 | XRAY Report ---
PROCEDURE: Finger(s) LT INDICATIONS: LEFT 3RD FINGER INJURY F/U TECHNIQUE: AP hand, 3 views of the third finger(s) acquired. COMPARISON: X-ray finger 12/31/2020 FINDINGS: Bones: There is been amputation of the mid and distal third phalanx. Scattered areas of IP degenerati ve narrowing are present. The latter to severe first CMC degenerative narrowing with subchondral scle rosis is present. Subluxation is present at the first MCP joint. No suspicious bony lesions. Soft tissues: No suspicious soft tissue calcifications. IMPRESSION: Interval amputation of the mid and distal third distal phalanx. Arthritic changes most severe at the first CMC joint. Reviewed by: Jerri Vázquez MD on 06/30/2021 10:13 AM PST Approved by: Jerri Vázquez MD on 06/30/2021 10:13 AM [facility] Station ID: [id number]
== END 2021-06-29 07:47 | disposition home or self-care (01) ==
LOC: DI.WOS 07:46
PROVIDERS: ATTEND Orthopaedic Surgery
DX: S69.92XD Unspecified injury of left wrist, hand and finger(s), subsequent encounter (principal); M19.042 Primary osteoarthritis, left hand; M18.12 Unilateral primary osteoarthritis of first carpometacarpal joint, left hand

== ENCOUNTER 2021-12-07 07:09 | Outpatient (CLI) | payer MEDICARE ==
[2021-12-07 15:03] LABS: BASOPHILS # (AUTO) 0.1 10^3/uL (0.0-0.1); BASOPHILS % (AUTO) 0.8 %; EOSINOPHILS # (AUTO) 0.2 10^3/uL (0.0-0.7); EOSINOPHILS % (AUTO) 2.9 %; HCT - HEMATOCRIT 47.4 % (42.0-52.0); HGB - HEMOGLOBIN 15.8 g/dL (14.0-18.0); LYMPHOCYTES # (AUTO) 1.6 10^3/uL (1.5-3.5); LYMPHOCYTES % (AUTO) 25.7 %; MEAN CORPUSCULAR HEMOGLOBIN 34.4 pg (27.0-31.0); MEAN CORPUSCULAR HGB CONC 33.3 g/dL (32.0-36.0); MEAN CORPUSCULAR VOLUME 103.3 fL (80.0-94.0); MEAN PLATELET VOLUME 10.2 fL (7.4-11.4); MONOCYTES # (AUTO) 0.5 10^3/uL (0.0-1.0); MONOCYTES % (AUTO) 8.8 %; NEUTROPHILS # (AUTO) 3.8 10^3/uL (1.5-6.6); NEUTROPHILS % (AUTO) 61.5 %; PLT - PLATELET COUNT 213 10^3/uL (130-450); RED BLOOD COUNT 4.59 10^6/uL (4.70-6.10); RED CELL DISTRIBUTION WIDTH 12.5 % (12.0-15.0); WHITE BLOOD COUNT 6.1 x10^3/uL (4.8-10.8)
[2021-12-07 15:30] LABS: ALBUMIN/GLOBULIN RATIO 1.6 (1.0-2.2); ALKALINE PHOSPHATASE 58 IU/L (42-121); ALT ALANINE AMINOTRANSFERASE 35 IU/L (10-60); AST ASPARTATE AMINOTRANSFERASE 28 IU/L (10-42); BUN - BLOOD UREA NITROGEN 13 mg/dL (6-20); CALCIUM 9.3 mg/dL (8.5-10.3); CARBON DIOXIDE - CO2 29 mmol/L (21-32); CHLORIDE 99 mmol/L (101-111); CHOL/HDL RATIO 2.4 (<5.0); CHOLESTEROL 169 mg/dL; CREATININE 0.7 mg/dL (0.6-1.2); GFR - MDRD 110 (>89); GLUCOSE 99 mg/dL (70-100); HDL CHOLESTEROL 69 mg/dL; LDL CHOLESTEROL,CALCULATED 91 mg/dL; LDL/HDL RATIO 1.3 (<3.6); POTASSIUM 4.1 mmol/L (3.5-5.0); SODIUM 135 mmol/L (135-145); TOTAL PROTEIN 6.5 g/dL (6.7-8.2); TRIGLYCERIDES 47 mg/dL; VLDL CHOLESTEROL 9 mg/dL
[2021-12-07 15:36] LABS: THYROID STIMULATING HORMONE 0.46 uIU/mL (0.34-5.60)
== END 2021-12-07 07:10 | disposition home or self-care (01) ==
LOC: LAB.S 07:09
PROVIDERS: ATTEND Registered Nurse
DX: I10 Essential (primary) hypertension (principal); E78.5 Hyperlipidemia, unspecified; Z13.29 Encounter for screening for other suspected endocrine disorder; G47.33 Obstructive sleep apnea (adult) (pediatric)
CPT/HCPCS: 36415; 80053; 80061; 83721; 84443; 85025

== ENCOUNTER 2022-03-15 06:33 | Day surgery (SDC) | payer MEDICARE ==
[2022-03-15] MEDS ORDERED: LACTATED RINGERS 1,000 ML IV ONE ×2 (07:03→08:53)
--- NOTE | 2022-03-15 07:21 | ANESTHESIA ---
Pre-Anesthesia VS, & Labs - Diagnosis screening, hx of polyps - Procedure colonoscopy Vital Signs: Temp Pulse Resp BP Pulse Ox O2 Flow Rate 36.7 C 51 L 16 155/73 H 98 03/15/22 06:49 03/15/22 06:49 03/15/22 06:49 03/15/22 06:49 03/15/22 06:49 Height: 6 ft Weight (kg): 88.4 kg Body Mass Index: 26.4 BMI Classification: Overweight - NPO >8 hours Home Medications and Allergies Atorvastatin [Lipitor] 20 mg PO DAILY 12/12/18 Cholecalciferol (Vitamin D3) [Vitamin D3] 5,000 unit PO DAILY 12/12/18 Cyanocobalamin (Vitamin B-12) [Vitamin B-12] 1,000 mcg PO DAILY 12/12/18 Felodipine [Felodipine ER] 5 mg PO DAILY 12/12/18 Krill/Om-3/Dha/Epa/Phospho/Ast [[place]-3 Krill Oil 300 mg Sfgl] 3 cap PO DAILY 12/12/18 Levothyroxine Sodium [Synthroid] 150 mcg PO DAILY 12/12/18 Losartan Potassium [Cozaar] 100 mg PO DAILY 12/12/18 hydroCHLOROthiazide [Hydrodiuril] 12.5 mg PO DAILY 02/06/21 Allergies/Adverse Reactions: Allergies Allergy/AdvReac Type Severity Reaction Status Date / Time No Known Drug Allergies Allergy Verified 12/31/20 15:24 Anes History & Medical History - Anesthetic History Anesthesia Complications: reports: No previous complications Family history of Anesthesia Complications: Denies Family history of Malignant Hyperthermia: Denies - Medical History Cardiovascular: reports: Hypertension Pulmonary: reports: None Gastrointestinal: reports: Colon polyps Urinary: reports: None Neuro: reports: None Musculoskeletal: reports: Rheumatoid arthritis Endocrine/Autoimmune: reports: HyPERthyroidism, HyPOthyroidism Blood Disorders: reports: None Skin: reports: None Smoking Status: Current every day smoker (20 year pack history. smokes cigars currently) - Surgical History General: reports: Colonoscopy Eyes Ears Nose Throat (EENT): reports: Tonsil/Adenoidectomy Urologic: reports: Testicular surgery Orthopedic: reports: Other Exam General: Alert, Oriented x3, Cooperative, No acute distress Dental: WNL Mouth Openin Fingerbreadth Neck Mobility: Normal Mallampati classification: II Thyromental Distance: 4-6 cm Respiratory: Lungs clear, Normal breath sounds, No respiratory distress, No accessory muscle use Mental/Cognitive Status: Alert/Oriented X3, Normal for patient Cognitive Status: Within normal limits Plan Anesthesia Type: Total IV Consent for Procedure(s) Verified and Reviewed: Yes Code Status: Attempt Resuscitation ASA classification: 2-Mild systemic disease Is this case an emergency?: No
[2022-03-15] MEDS ORDERED: PROPOFOL 500 MG/50 ML 500 MG/50 ML VIAL ONE ×2 (07:41→08:49)
[2022-03-15] MEDS ORDERED: PROPOFOL 200 MG/20 ML VIAL IVP ONE ×5 (07:41→08:31)
[2022-03-15] MEDS ORDERED: GLYCOPYRROLATE 1 MG/5 ML VIAL ONE (07:51)
[2022-03-15 10:51] VITALS: BP 134/78
--- NOTE | 2022-03-15 11:51 | ANESTHESIA POST OP EVALUATION ---
Anesthesia Post Eval - Post Anesthesia Eval Vitals: Last Vital Signs Temp 36.3 C L 03/15/22 09:35 Pulse 66 03/15/22 09:35 Resp 16 03/15/22 09:35 BP 134/78 H 03/15/22 09:35 Pulse Ox 99 03/15/22 09:35 O2 Flow Rate CV Function Including HR & BP: Stable Pain Control: Satisfactory Nausea & Vomiting: Negative Mental Status: Baseline Respiratory Status: Airway Patent Hydration Status: Satisfactory Anesthesia Complications: None
== END 2022-03-15 06:34 | disposition home or self-care (01) ==
LOC: SDS 06:33
PROVIDERS: ATTEND Surgery
PROC: 0DBP8ZX Excision of Rectum, Via Natural or Artificial Opening Endoscopic, Diagnostic (ICD-10-PCS; 2022-03-15)
PROC: 0DBH8ZX Excision of Cecum, Via Natural or Artificial Opening Endoscopic, Diagnostic (ICD-10-PCS; 2022-03-15)
PROC: 0DBK8ZX Excision of Ascending Colon, Via Natural or Artificial Opening Endoscopic, Diagnostic (ICD-10-PCS; principal; 2022-03-15 07:30)
DX: D12.2 Benign neoplasm of ascending colon (principal); D12.0 Benign neoplasm of cecum; Z80.0 Family history of malignant neoplasm of digestive organs; Z83.71 Family history of colonic polyps; I10 Essential (primary) hypertension; F17.290 Nicotine dependence, other tobacco product, uncomplicated; G47.33 Obstructive sleep apnea (adult) (pediatric)
CPT/HCPCS: 45380; J7120

== ENCOUNTER 2022-11-21 08:00 | Outpatient (CLI) | payer BC, MEDICARE ==
[2022-11-21 14:21] LABS: BASOPHILS # (AUTO) 0.1 10^3/uL (0.0-0.1); BASOPHILS % (AUTO) 0.9 %; EOSINOPHILS # (AUTO) 0.2 10^3/uL (0.0-0.7); EOSINOPHILS % (AUTO) 3.2 %; HCT - HEMATOCRIT 46.2 % (42.0-52.0); HGB - HEMOGLOBIN 15.4 g/dL (14.0-18.0); LYMPHOCYTES # (AUTO) 1.5 10^3/uL (1.5-3.5); LYMPHOCYTES % (AUTO) 22.2 %; MEAN CORPUSCULAR HEMOGLOBIN 33.7 pg (27.0-31.0); MEAN CORPUSCULAR HGB CONC 33.3 g/dL (32.0-36.0); MEAN CORPUSCULAR VOLUME 101.1 fL (80.0-94.0); MEAN PLATELET VOLUME 10.4 fL (7.4-11.4); MONOCYTES # (AUTO) 0.6 10^3/uL (0.0-1.0); MONOCYTES % (AUTO) 7.9 %; NEUTROPHILS # (AUTO) 4.6 10^3/uL (1.5-6.6); NEUTROPHILS % (AUTO) 65.7 %; PLT - PLATELET COUNT 233 10^3/uL (130-450); RED BLOOD COUNT 4.57 10^6/uL (4.70-6.10); RED CELL DISTRIBUTION WIDTH 12.2 % (12.0-15.0)
[2022-11-21 14:41] LABS: ALBUMIN 4.2 g/dL (3.2-5.5); ALBUMIN/GLOBULIN RATIO 1.6 (1.0-2.2); ALKALINE PHOSPHATASE 53 IU/L (42-121); ALT ALANINE AMINOTRANSFERASE 27 IU/L (10-60); AST ASPARTATE AMINOTRANSFERASE 21 IU/L (10-42); BILIRUBIN,TOTAL 1.1 mg/dL (0.2-1.0); BUN - BLOOD UREA NITROGEN 9 mg/dL (6-20); CALCIUM 9.1 mg/dL (8.5-10.3); CARBON DIOXIDE - CO2 30 mmol/L (21-32); CHLORIDE 103 mmol/L (101-111); CHOL/HDL RATIO 2.2 (<5.0); CHOLESTEROL 165 mg/dL; CREATININE 0.7 mg/dL (0.6-1.2); GFR - MDRD 110 (>89); GLUCOSE 101 mg/dL (70-100); HDL CHOLESTEROL 75 mg/dL; LDL CHOLESTEROL,CALCULATED 72 mg/dL; POTASSIUM 3.8 mmol/L (3.5-5.0); SODIUM 139 mmol/L (135-145); TOTAL PROTEIN 6.9 g/dL (6.7-8.2); TRIGLYCERIDES 92 mg/dL; VLDL CHOLESTEROL 18 mg/dL
[2022-11-21 14:49] LABS: THYROID STIMULATING HORMONE 0.27 uIU/mL (0.34-5.60)
[2022-11-21 15:42] LABS: FREE T4 (FREE THYROXINE) 1.24 ng/dL (0.58-1.64)
== END 2022-11-21 23:59 | disposition home or self-care (01) ==
LOC: LAB.S 08:00
PROVIDERS: ATTEND Registered Nurse
DX: E78.5 Hyperlipidemia, unspecified (principal); Z79.899 Other long term (current) drug therapy; E03.9 Hypothyroidism, unspecified
CPT/HCPCS: 36415; 80053; 80061; 83721; 84439; 84443; 85025

== ENCOUNTER 2022-12-14 08:00 | Outpatient (CLI) | payer MEDICARE | END 2022-12-14 23:59 | disposition home or self-care (01) | LOC: LAB.F 08:00 | PROVIDERS: ATTEND Registered Nurse | DX: L72.3 Sebaceous cyst (principal) | CPT/HCPCS: 87070; 87205 ==

== ENCOUNTER 2023-01-08 09:13 | Outpatient (CLI) | payer MEDICARE ==
[2023-01-08 16:01] LABS: THYROID STIMULATING HORMONE 0.29 uIU/mL (0.34-5.60)
== END 2023-01-08 09:14 | disposition home or self-care (01) ==
LOC: LAB.S 09:13
PROVIDERS: ATTEND Registered Nurse
DX: E03.9 Hypothyroidism, unspecified (principal)
CPT/HCPCS: 36415; 84436; 84443; 84480

== ENCOUNTER 2023-09-30 08:35 | Outpatient (CLI) | payer MEDICARE ==
[2023-09-30 15:20] LABS: THYROID STIMULATING HORMONE 0.17 uIU/mL (0.34-5.60)
== END 2023-09-30 08:36 | disposition home or self-care (01) ==
LOC: LAB.S 08:35
PROVIDERS: ATTEND Registered Nurse
DX: E03.9 Hypothyroidism, unspecified (principal); Z79.899 Other long term (current) drug therapy
CPT/HCPCS: 36415; 84439; 84443

== ENCOUNTER 2023-12-03 07:23 | Outpatient (CLI) | payer MEDICARE ==
[2023-12-03 14:19] LABS: BASOPHILS # (AUTO) 0.1 10^3/uL (0.0-0.1); BASOPHILS % (AUTO) 0.8 %; EOSINOPHILS # (AUTO) 0.2 10^3/uL (0.0-0.7); EOSINOPHILS % (AUTO) 2.7 %; HCT - HEMATOCRIT 46.3 % (42.0-52.0); HGB - HEMOGLOBIN 15.5 g/dL (14.0-18.0); LYMPHOCYTES # (AUTO) 1.8 10^3/uL (1.5-3.5); LYMPHOCYTES % (AUTO) 25.4 %; MEAN CORPUSCULAR HEMOGLOBIN 34.4 pg (27.0-31.0); MEAN CORPUSCULAR HGB CONC 33.5 g/dL (32.0-36.0); MEAN CORPUSCULAR VOLUME 102.7 fL (80.0-94.0); MEAN PLATELET VOLUME 10.1 fL (7.4-11.4); MONOCYTES # (AUTO) 0.7 10^3/uL (0.0-1.0); MONOCYTES % (AUTO) 9.3 %; NEUTROPHILS # (AUTO) 4.4 10^3/uL (1.5-6.6); NEUTROPHILS % (AUTO) 61.7 %; PLT - PLATELET COUNT 232 10^3/uL (130-450); RED BLOOD COUNT 4.51 10^6/uL (4.70-6.10); RED CELL DISTRIBUTION WIDTH 12.5 % (12.0-15.0); WHITE BLOOD COUNT 7.1 x10^3/uL (4.8-10.8)
[2023-12-03 15:04] LABS: ALBUMIN 4.4 g/dL (3.2-5.5); ALBUMIN/GLOBULIN RATIO 1.8 (1.0-2.2); ALKALINE PHOSPHATASE 60 IU/L (42-121); ALT ALANINE AMINOTRANSFERASE 17 IU/L (10-60); AST ASPARTATE AMINOTRANSFERASE 20 IU/L (10-42); BILIRUBIN,TOTAL 1.1 mg/dL (0.2-1.0); BUN - BLOOD UREA NITROGEN 13 mg/dL (6-20); CALCIUM 9.5 mg/dL (8.5-10.3); CARBON DIOXIDE - CO2 29 mmol/L (21-32); CHLORIDE 99 mmol/L (101-111); CHOL/HDL RATIO 2.3 (<5.0); CHOLESTEROL 200 mg/dL; CREATININE 0.7 mg/dL (0.6-1.3); GFR - MDRD 110 (>89); GLUCOSE 86 mg/dL (74-104); HDL CHOLESTEROL 86 mg/dL; LDL CHOLESTEROL,CALCULATED 94 mg/dL; LDL/HDL RATIO 1.1 (<3.6); POTASSIUM 3.9 mmol/L (3.5-4.5); SODIUM 134 mmol/L (135-145); TOTAL PROTEIN 6.8 g/dL (6.4-8.9); TRIGLYCERIDES 100 mg/dL (48-352); VLDL CHOLESTEROL 20 mg/dL
[2023-12-03 15:12] LABS: THYROID STIMULATING HORMONE 0.43 uIU/mL (0.34-5.60)
== END 2023-12-03 07:24 | disposition home or self-care (01) ==
LOC: LAB.S 07:23
PROVIDERS: ATTEND Registered Nurse
DX: D12.6 Benign neoplasm of colon, unspecified (principal); Z12.5 Encounter for screening for malignant neoplasm of prostate; Z13.228 Encounter for screening for other metabolic disorders; Z13.220 Encounter for screening for lipoid disorders; Z13.29 Encounter for screening for other suspected endocrine disorder; Z13.0 Encounter for screening for diseases of the blood and blood-forming organs and certain disorders involving the immune mechanism
CPT/HCPCS: 36415; 80053; 80061; 84443; 85025; G0103; 83721; 84153